=== PATIENT | male | born 1985 | race Caucasian/White ===

== ENCOUNTER 2021-01-12 14:15 | Emergency (ER) | payer BC ==
[~2021-01-12] VITALS: Ht 188 cm; Wt 107.5 kg
--- NOTE | 2021-01-12 14:26 | NUR ---
PATIENT PRESENTED TO ED WITH C/O L SIDED FACE AND L SIDED TINGGLY SENSATION SINCE LAST NIGHT AT 2300. PATIENT ALERT AND ORIENTED X4. O RESPIRATORY DISTRESS, EVEN AN UNLABORED BREATHS. WILL CONTINUE TO MONITOR.
--- NOTE | 2021-01-12 14:49 | NUR ---
MD Cavanaugh at bedside
[2021-01-12] MEDS ORDERED: IBUP-1955 PO (15:11)
--- NOTE | 2021-01-12 15:18 | NUR ---
Patient discharged to home in stable condition. Written and verbal after care instructions given. Patient verbalizes understanding of instruction.
[2021-01-12 15:19] VITALS: BP 129/94
== END 2021-01-12 15:20 | disposition home or self-care (01) ==
LOC: ER 15:02
DX: R20.2 Paresthesia of skin (principal); Z88.2 Allergy status to sulfonamides